=== PATIENT | male | born 1995 | race Caucasian/White ===

== ENCOUNTER 2019-02-04 21:41 | Outpatient (CLI) | payer MEDICAID | END 2019-02-04 21:42 | disposition EMS.NT | LOC: EMS 21:41 | PROVIDERS: ATTEND Surgery | DX: M54.9 Dorsalgia, unspecified (principal); R06.02 Shortness of breath ==

== ENCOUNTER 2019-02-19 20:55 | Outpatient (CLI) | payer MEDICAID | END 2019-02-19 20:56 | disposition EMS.NT | LOC: EMS 20:55 | PROVIDERS: ATTEND Surgery | DX: R09.89 Other specified symptoms and signs involving the circulatory and respiratory systems (principal) ==